=== PATIENT | female | born 1975 | race African-American/Black ===

== ENCOUNTER → 2018-12-14 | Outpatient (REF) | payer OTHER | LOC: M SFHCLERA 17:38 | PROVIDERS: ATTEND Physician Assistant | DX: J02.9 Acute pharyngitis, unspecified (principal) ==

== ENCOUNTER → 2018-12-14 | Outpatient (CLI) | payer OTHER ==
--- NOTE | 2018-12-14 18:56 | REP ---
CHEST, TWO VIEWS: Two views of the chest were performed. There is patchy infiltrate in the right lower lobe. No infiltrate is seen in the left lung. Heart is normal in size. Mediastinal silhouette is appears unremarkable. IMPRESSION: Right lower lobe infiltrate. Electronically Signed by George Wagner MD 12/14/2018 07:48 P
== END ==
LOC: M LRY 17:41
PROVIDERS: ATTEND Physician Assistant
DX: R50.9 Fever, unspecified (principal); R05 Cough